=== PATIENT | female | born 1975 | race American Indian/Alaskan Native ===

== ENCOUNTER 2018-04-17 12:23 | Emergency (ER) | payer OTHER ==
[2018-04-17] MEDS ORDERED: NARCAN 2 MG/2 ML ONE (12:34)
[2018-04-17] MEDS ORDERED: ZOFRAN ONE (12:42)
[2018-04-17] MEDS ORDERED: NARCAN 2 MG/2 ML IV ONE (12:43)
[2018-04-17] MEDS ORDERED: ZOFRAN IV ONE (12:43)
[2018-04-17] MEDS ORDERED: KEPPRA 1,000 MG/NS 0.75% 100ML 1,000 MG/100 ML BAG IV ONE (13:01)
--- NOTE | 2018-04-17 13:04 | Cat Scan Report ---
CT HEAD WITHOUT CONTRAST: HISTORY: Altered mental status. TECHNIQUE: Sequential CT images without contrast. FINDINGS: There is a large acute hemorrhage with epicenter overlying the left basal ganglia measuring 5.7 x 3.7 cm in axial plane. There is extension into the ventricular system with thrombus in all ventricles. Mild hydrocephalus is present. There is moderate mass effect on the left lateral ventricle with right to left midline shift measuring 7 mm at the level of the frontal horns. There is mild sulcal effacement throughout the cerebral hemispheres secondary to edema. No extra-axial fluid collection is appreciated. There is moderate mucosal thickening throughout the right maxillary sinus. The remaining visualized sinuses and mastoid air cells are clear. IMPRESSION: Large acute hemorrhage arising from the left basal ganglia with intraventricular extension and mild hydrocephalus. See above. These findings were discussed with Dr. Pierre in the emergency department at 1258 hrs.
[2018-04-17] MEDS ORDERED: ZEMURON IV ONE (13:09)
[2018-04-17] MEDS ORDERED: AMIDATE IV ONE (13:09)
[2018-04-17] MEDS ORDERED: XYLOCAINE CARDIAC IV ONE ×2 (13:09→14:33)
[2018-04-17] MEDS ORDERED: VASELINE LIP THERAPY TP PRN (13:16)
[2018-04-17] MEDS ORDERED: ARTIFICIAL TEARS OPHTH OINT OU PRN (13:16)
--- NOTE | 2018-04-17 13:33 | Emergency Department Report ---
ED Altered Mental Status HPI - General Chief Complaint: Altered Mental Status Stated Complaint: AMS/ N/V Time Seen by Provider: 04/17/18 12:27 Source: family, EMS Mode of arrival: Stretcher Limitations: Altered Mental Status - History of Present Illness Initial Comments: 43-year-old female with a past medical history of diabetes, CAD with stenting, hypertension, elevated cholesterol, and end-stage renal disease on dialysis presents to the hospital with alteration in mental status. Daughter found patient altered in the bed this a.m. and called EMS. Patient was compliant with her dialysis yesterday and was normal and did not have any complaints yesterday or prior to bedtime. Patient is agitated, lethargic, would not follow commands or speak. She appears to be nauseated and had some vomiting at the bedside. Daughter provide a history of present illness. Patient's meds reviewed at the bedside and she is on Plavix and aspirin 325 mg. She also was prescribed Augmentin recently for sinus infection. EMS reports an Accu-Chek in the 100s - Related Data Home Medications Medication Instructions Recorded Confirmed Last Taken Lisinopril 40 mg PO DAILY 06/04/13 05/30/15 05/29/15 Omeprazole Magnesium [PriLOSEC Otc] 20 mg PO PRN PRN 06/04/13 05/30/15 05/29/15 Previous Rx's Medication Instructions Recorded Last Taken Type Aspirin [Aspirin TAB] 325 mg PO QDAY #30 tablet 04/28/13 06/04/13 Rx Clopidogrel [Plavix] 75 mg PO QDAY #30 tablet 04/28/13 06/04/13 Rx Metoprolol [Lopressor TAB] 100 mg PO BID #60 tablet 04/28/13 05/29/15 Rx Rosuvastatin (Nf) [Crestor] 40 mg PO QHS #30 tablet 04/28/13 05/29/15 Rx amLODIPine [Norvasc] 10 mg PO DAILY #30 tablet 04/28/13 05/29/15 Rx cloNIDine [Catapres] 0.1 mg PO Q12HR #60 tablet 04/28/13 05/29/15 Rx HYDROcodone/APAP 7.5-325 [[place] 1 each PO Q8HR PRN #12 tablet 10/03/14 05/29/15 Rx 7.5-325 mg TAB] Amoxicillin/K Clav Tab [Augmentin 1 tab PO Q12HR #4 tab 06/02/15 Unknown Rx 875 mg] Insulin NPH, Human [NovoLIN N] 35 unit SUB-Q BIDDIAB 90 Days 06/02/15 Unknown Rx units Insulin Regular, Human [HumuLIN R] 20 units IV BIDBRS 90 Days units 06/02/15 Unknown Rx Allergies Allergy/AdvReac Type Severity Reaction Status Date / Time No Known Allergies Allergy Verified 10/03/14 10:28 ED Review of Systems ROS: Stated complaint: AMS/ N/V Other details as noted in HPI Comment: All other systems reviewed and negative ED Past Medical Hx - Past Medical History Hx Hypertension: Yes Hx Heart Attack/AMI: Yes ([place] x2) Hx Congestive Heart Failure: No Hx Diabetes: Yes Hx Renal Disease: Yes (end-stage renal disease on dialysis) Hx Asthma: Yes Hx COPD: No - Surgical History Hx Coronary Stent: Yes Additional Surgical History: tubal ligation. endometrial ablation - Social History Smoking Status: Unknown if ever smoked Substance Use Type: None - Medications Home Medications: Home Medications Medication Instructions Recorded Confirmed Last Taken Type Aspirin [Aspirin TAB] 325 mg PO QDAY #30 tablet 04/28/13 05/30/15 06/04/13 Rx Clopidogrel [Plavix] 75 mg PO QDAY #30 tablet 04/28/13 05/30/15 06/04/13 Rx Metoprolol [Lopressor TAB] 100 mg PO BID #60 tablet 04/28/13 05/30/15 05/29/15 Rx Rosuvastatin (Nf) [Crestor] 40 mg PO QHS #30 tablet 04/28/13 05/30/15 05/29/15 Rx amLODIPine [Norvasc] 10 mg PO DAILY #30 tablet 04/28/13 05/30/15 05/29/15 Rx cloNIDine [Catapres] 0.1 mg PO Q12HR #60 tablet 04/28/13 05/30/15 05/29/15 Rx Lisinopril 40 mg PO DAILY 06/04/13 05/30/15 05/29/15 History Omeprazole Magnesium [PriLOSEC Otc] 20 mg PO PRN PRN 06/04/13 05/30/15 05/29/15 History HYDROcodone/APAP 7.5-325 [[place] 1 each PO Q8HR PRN #12 tablet 10/03/14 05/30/15 05/29/15 Rx 7.5-325 mg TAB] Amoxicillin/K Clav Tab [Augmentin 1 tab PO Q12HR #4 tab 06/02/15 Unknown Rx 875 mg] Insulin NPH, Human [NovoLIN N] 35 unit SUB-Q BIDDIAB 90 Days 06/02/15 Unknown Rx units Insulin Regular, Human [HumuLIN R] 20 units IV BIDBRS 90 Days units 06/02/15 Unknown Rx ED Physical Exam - General Limitations: Altered Mental Status - Other Other exam information: General: A Head exam: Atraumatic, normocephalic Eyes exam: Normal appearance, pupils equal reactive to light ENT: Moist mucous membrane, normal oropharynx Neck exam: Normal inspection, full range of motion, no meningismus nontender Respiratory exam: Clear to auscultation bilateral, no wheezes, rales, crackles Cardiovascular: Normal rate and rhythm, left arm dialysis access Abdomen: Soft, nontender, with normal bowel sounds, no rebound, or guarding. Horizontal suprapubic surgical scar Extremity: No deformity, moves both extremities equally, sensation grossly intact Back: Normal Inspection Neurologic: Lethargic, agitated, nonverbal, does not follow commands, spontaneously moves all extremities, withdraws to discomfort, sensation grossly intact Psychiatric: normal affect, normal mood Skin: Warm, dry, intact ED Course Vital Signs 04/17/18 04/17/18 04/17/18 12:43 13:01 13:16 Pulse Rate 78 92 H Respiratory 14 11 L Rate Blood Pressure 255/124 261/146 O2 Sat by Pulse 99 100 Oximetry 04/17/18 04/17/18 04/17/18 13:30 13:46 14:00 Pulse Rate 80 75 80 Respiratory 10 L 12 11 L Rate Blood Pressure 261/146 191/99 178/97 O2 Sat by Pulse 100 100 100 Oximetry 04/17/18 14:15 Pulse Rate 79 Respiratory 18 Rate Blood Pressure 140/80 O2 Sat by Pulse 100 Oximetry - Consultations Consultation #1: 04/17/18 13:30 [facility] paged. 04/17/18 13:42 Case discussed on conference call with transfer service at [facility], Dr. Melendez neurosurgery and Dr. Clement ICU attending. Patient has been accepted for transfer to the NICU. Mannitol bolus recommended - Intubation Time Out Performed: Yes Sedative: Etomidate Mg Given: 20 Paralytic: Rocuronium (100) Mg Given: 100 Laryngoscope: Mary Size: 4 ET Tube Size: 7.5 Other Airway Intervention: pretreated with lidocaine for neurointubation Tube Secured Depth (cm): 22 Tube Secured Location: lips Tube Placement Confirmation: visualized tube passing t, equal breath sounds bilat, no breath sounds over epi, confirmation by capnometr Patient Tolerated Procedure: no complications Intubation Complications: none - Lab Data Result diagrams: 04/17/18 13:20 04/17/18 13:20 Lab Results 04/17/18 04/17/18 04/17/18 Range/Units 13:20 13:20 13:20 WBC 13.5 H (4.5-11.0) K/mm3 RBC 3.47 L (3.65-5.03) M/mm3 Hgb 11.4 (10.1-14.3) gm/dl Hct 34.3 (30.3-42.9) % MCV 99 H (79-97) fl MCH 33 H (28-32) pg MCHC 33 (30-34) % RDW 16.0 H (13.2-15.2) % Plt Count 469 H (140-440) K/mm3 Lymph % (Auto) 25.0 (13.4-35.0) % [place] % (Auto) 6.9 (0.0-7.3) % Eos % (Auto) 1.7 (0.0-4.3) % Baso % (Auto) 1.0 (0.0-1.8) % Lymph # 3.4 (1.2-5.4) K/mm3 [place] # 0.9 H (0.0-0.8) K/mm3 Eos # 0.2 (0.0-0.4) K/mm3 Baso # 0.1 (0.0-0.1) K/mm3 Seg Neutrophils % 65.4 (40.0-70.0) % Seg Neutrophils # 8.8 H (1.8-7.7) K/mm3 PT 12.8 (12.2-14.9) Sec. INR 0.91 (0.87-1.13) APTT 29.7 (24.2-36.6) Sec. Sodium 137 (137-145) mmol/L Potassium 5.1 H (3.6-5.0) mmol/L Chloride 96.4 L (98-107) mmol/L Carbon Dioxide 20 L (22-30) mmol/L Anion Gap 26 mmol/L BUN 39 H (7-17) mg/dL Creatinine 10.1 H (0.7-1.2) mg/dL Estimated GFR 5 ml/min BUN/Creatinine Ratio 4 % Glucose 259 H (65-100) mg/dL Lactic Acid (0.7-2.0) mmol/L Calcium 9.8 (8.4-10.2) mg/dL Total Bilirubin 0.30 (0.1-1.2) mg/dL ALT 13 (7-56) units/L Alkaline Phosphatase 80 (35-129) units/L Ammonia (25-60) umol/L Total Creatine Kinase 81 (30-135) units/L Troponin T 0.065 H (0.00-0.029) ng/mL Total Protein 7.8 (6.3-8.2) g/dL Albumin 4.3 (3.9-5) g/dL Albumin/Globulin Ratio 1.2 % TSH (0.270-4.200) mlU/mL HCG, Qual (Negative) Salicylates (2.8-20.0) mg/dL Acetaminophen (10.0-30.0) ug/mL Plasma/Serum Alcohol (0-0.07) % Blood Type 04/17/18 04/17/18 04/17/18 Range/Units 13:20 13:20 13:20 WBC (4.5-11.0) K/mm3 RBC (3.65-5.03) M/mm3 Hgb (10.1-14.3) gm/dl Hct (30.3-42.9) % MCV (79-97) fl MCH (28-32) pg MCHC (30-34) % RDW (13.2-15.2) % Plt Count (140-440) K/mm3 Lymph % (Auto) (13.4-35.0) % [place] % (Auto) (0.0-7.3) % Eos % (Auto) (0.0-4.3) % Baso % (Auto) (0.0-1.8) % Lymph # (1.2-5.4) K/mm3 [place] # (0.0-0.8) K/mm3 Eos # (0.0-0.4) K/mm3 Baso # (0.0-0.1) K/mm3 Seg Neutrophils % (40.0-70.0) % Seg Neutrophils # (1.8-7.7) K/mm3 PT (12.2-14.9) Sec. INR (0.87-1.13) APTT (24.2-36.6) Sec. Sodium (137-145) mmol/L Potassium (3.6-5.0) mmol/L Chloride (98-107) mmol/L Carbon Dioxide (22-30) mmol/L Anion Gap mmol/L BUN (7-17) mg/dL Creatinine (0.7-1.2) mg/dL Estimated GFR ml/min BUN/Creatinine Ratio % Glucose (65-100) mg/dL Lactic Acid 1.30 (0.7-2.0) mmol/L Calcium (8.4-10.2) mg/dL Total Bilirubin (0.1-1.2) mg/dL ALT (7-56) units/L Alkaline Phosphatase (35-129) units/L Ammonia 32.0 (25-60) umol/L Total Creatine Kinase (30-135) units/L Troponin T (0.00-0.029) ng/mL Total Protein (6.3-8.2) g/dL Albumin (3.9-5) g/dL Albumin/Globulin Ratio % TSH 3.030 (0.270-4.200) mlU/mL HCG, Qual (Negative) Salicylates (2.8-20.0) mg/dL Acetaminophen (10.0-30.0) ug/mL Plasma/Serum Alcohol (0-0.07) % Blood Type 04/17/18 04/17/18 04/17/18 Range/Units 13:20 13:20 13:20 WBC (4.5-11.0) K/mm3 RBC (3.65-5.03) M/mm3 Hgb (10.1-14.3) gm/dl Hct (30.3-42.9) % MCV (79-97) fl MCH (28-32) pg MCHC (30-34) % RDW (13.2-15.2) % Plt Count (140-440) K/mm3 Lymph % (Auto) (13.4-35.0) % [place] % (Auto) (0.0-7.3) % Eos % (Auto) (0.0-4.3) % Baso % (Auto) (0.0-1.8) % Lymph # (1.2-5.4) K/mm3 [place] # (0.0-0.8) K/mm3 Eos # (0.0-0.4) K/mm3 Baso # (0.0-0.1) K/mm3 Seg Neutrophils % (40.0-70.0) % Seg Neutrophils # (1.8-7.7) K/mm3 PT (12.2-14.9) Sec. INR (0.87-1.13) APTT (24.2-36.6) Sec. Sodium (137-145) mmol/L Potassium (3.6-5.0) mmol/L Chloride (98-107) mmol/L Carbon Dioxide (22-30) mmol/L Anion Gap mmol/L BUN (7-17) mg/dL Creatinine (0.7-1.2) mg/dL Estimated GFR ml/min BUN/Creatinine Ratio % Glucose (65-100) mg/dL Lactic Acid (0.7-2.0) mmol/L Calcium (8.4-10.2) mg/dL Total Bilirubin (0.1-1.2) mg/dL ALT (7-56) units/L Alkaline Phosphatase (35-129) units/L Ammonia (25-60) umol/L Total Creatine Kinase (30-135) units/L Troponin T (0.00-0.029) ng/mL Total Protein (6.3-8.2) g/dL Albumin (3.9-5) g/dL Albumin/Globulin Ratio % TSH (0.270-4.200) mlU/mL HCG, Qual (Negative) Salicylates < 0.3 L (2.8-20.0) mg/dL Acetaminophen < 5.0 L (10.0-30.0) ug/mL Plasma/Serum Alcohol < 0.01 (0-0.07) % Blood Type 04/17/18 04/17/18 Range/Units 13:20 13:20 WBC (4.5-11.0) K/mm3 RBC (3.65-5.03) M/mm3 Hgb (10.1-14.3) gm/dl Hct (30.3-42.9) % MCV (79-97) fl MCH (28-32) pg MCHC (30-34) % RDW (13.2-15.2) % Plt Count (140-440) K/mm3 Lymph % (Auto) (13.4-35.0) % [place] % (Auto) (0.0-7.3) % Eos % (Auto) (0.0-4.3) % Baso % (Auto) (0.0-1.8) % Lymph # (1.2-5.4) K/mm3 [place] # (0.0-0.8) K/mm3 Eos # (0.0-0.4) K/mm3 Baso # (0.0-0.1) K/mm3 Seg Neutrophils % (40.0-70.0) % Seg Neutrophils # (1.8-7.7) K/mm3 PT (12.2-14.9) Sec. INR (0.87-1.13) APTT (24.2-36.6) Sec. Sodium (137-145) mmol/L Potassium (3.6-5.0) mmol/L Chloride (98-107) mmol/L Carbon Dioxide (22-30) mmol/L Anion Gap mmol/L BUN (7-17) mg/dL Creatinine (0.7-1.2) mg/dL Estimated GFR ml/min BUN/Creatinine Ratio % Glucose (65-100) mg/dL Lactic Acid (0.7-2.0) mmol/L Calcium (8.4-10.2) mg/dL Total Bilirubin (0.1-1.2) mg/dL ALT (7-56) units/L Alkaline Phosphatase (35-129) units/L Ammonia (25-60) umol/L Total Creatine Kinase (30-135) units/L Troponin T (0.00-0.029) ng/mL Total Protein (6.3-8.2) g/dL Albumin (3.9-5) g/dL Albumin/Globulin Ratio % TSH (0.270-4.200) mlU/mL HCG, Qual Negative (Negative) Salicylates (2.8-20.0) mg/dL Acetaminophen (10.0-30.0) ug/mL Plasma/Serum Alcohol (0-0.07) % Blood Type O NEGATIVE - EKG Data -: EKG Interpreted by Me EKG shows normal: sinus rhythm, axis (qrs -2), QRS complexes (qrsd 92), ST-T waves (lat t inv) Rate: normal (77) When compared to previous EKG there are: no significant change (05/30/15) - Radiology Data Radiology results: report reviewed, image reviewed (xr chest portable: Et tube) CT HEAD WITHOUT CONTRAST: HISTORY: Altered mental status. TECHNIQUE: Sequential CT images without contrast. FINDINGS: There is a large acute hemorrhage with epicenter overlying the left basal ganglia measuring 5.7 x 3.7 cm in axial plane. There is extension into the ventricular system with thrombus in all ventricles. Mild hydrocephalus is present. There is moderate mass effect on the left lateral ventricle with right to left midline shift measuring 7 mm at the level of the frontal horns. There is mild sulcal effacement throughout the cerebral hemispheres secondary to edema. No extra-axial fluid collection is appreciated. There is moderate mucosal thickening throughout the right maxillary sinus. The remaining visualized sinuses and mastoid air cells are clear. IMPRESSION: Large acute hemorrhage arising from the left basal ganglia with intraventricular extension and mild hydrocephalus. See above. These findings were discussed with Dr. Pierre in the emergency department at 1258 hrs. - Medical Decision Making In the ED patient patient received neuro intubation with lidocaine, etomidate, and vecuronium Propofol for sedation Cardene drip for further blood pressure reduction plan transfer with goal of systolic below 160 Mannitol as recommended by [facility] physician Immanuel for seizure prophylaxis zofran for n/v prior to intubation pt is on asa/plavix. normal coags and plts Mild elevation troponin is noted however likley secondary to esrd. EKG is unchanged compared to previous from 2016 - Differential Diagnosis ICH, hypertensive emergency, encephalopathy, CVA Critical Care Time: Yes Critical care time in (mins) excluding proc time.: 65 Critical care attestation.: If time is entered above; I have spent that time in minutes in the direct care of this critically ill patient, excluding procedure time. ED Disposition Clinical Impression: Intracerebral hemorrhage, Malignant hypertension, Altered mental status, Hx of coronary artery disease, ESRD (end stage renal disease) on dialysis, Hx of heart artery stent Disposition: DC/TX-70 ANOTHER TYPE HLTHCARE Is pt being admited?: No Condition: Serious Referrals: PRIMARY CARE, [Primary Care Provider] - 3-5 Days Time of Disposition: 14:18 (awaiting ester transport)
[2018-04-17 13:38] LABS: Basophils # (Auto) 0.1 K/mm3 (0.0-0.1); Eosinophils # (Auto) 0.2 K/mm3 (0.0-0.4); Eosinophils % (Auto) 1.7 % (0.0-4.3); Hematocrit 34.3 % (30.3-42.9); Hemoglobin 11.4 gm/dl (10.1-14.3); Lymphocytes # (Auto) 3.4 K/mm3 (1.2-5.4); Mean Corpuscular HGB Conc 33 % (30-34); Mean Corpuscular Volume 99 fl (79-97); Monocytes # (Auto) 0.9 K/mm3 (0.0-0.8); Monocytes % (Auto) 6.9 % (0.0-7.3); Platelet Count 469 K/mm3 (140-440); Red Blood Count 3.47 M/mm3 (3.65-5.03)
[2018-04-17] MEDS ORDERED: OSMITROL 20% IV ONE (13:43)
[2018-04-17 13:52] LABS: INR 0.91 (0.87-1.13); Partial Thromboplastin Time 29.7 Sec. (24.2-36.6)
[2018-04-17 13:55] LABS: Albumin 4.3 g/dL (3.9-5); Calcium 9.8 mg/dL (8.4-10.2)
[2018-04-17] MEDS ORDERED: DIPRIVAN 10 MG/ML 1,000 MG/100 ML BOTTLE IV SCH (14:00)
[2018-04-17] MEDS ORDERED: OSMITROL 20% 500 ML IV ONE (14:00)
[2018-04-17] MEDS ORDERED: CARDENE 50 MG in NACL 0.9% 250ML 230 ML IV SCH (14:00)
[2018-04-17 14:23] VITALS: BP 140/80
[2018-04-17 14:41] LABS: Chol/HDL Ratio 5.3 %
--- NOTE | 2018-04-17 14:48 | XRay Report ---
AP CHEST: HISTORY: Endotracheal tube placement The endotracheal tube terminates 3.4 cm superior to the darryl. The lungs are clear and well-aerated. Heart size is at the upper limits of normal. Normal pulmonary vascularity. No evidence for pneumonia, pleural fluid or pneumothorax. The bony structures are intact. IMPRESSION: Adequate placement of the endotracheal tube. Borderline heart size.
== END 2018-04-17 14:50 | disposition other institution (70) ==
LOC: ED 12:23
DX: I61.9 Nontraumatic intracerebral hemorrhage, unspecified (principal); I13.2 Hypertensive heart and chronic kidney disease with heart failure and with stage 5 chronic kidney disease, or end stage renal disease; E11.22 Type 2 diabetes mellitus with diabetic chronic kidney disease; N18.6 End stage renal disease; Z99.2 Dependence on renal dialysis; J45.909 Unspecified asthma, uncomplicated; E78.00 Pure hypercholesterolemia, unspecified; Z95.1 Presence of aortocoronary bypass graft; Z79.82 Long term (current) use of aspirin; Z79.4 Long term (current) use of insulin; Z98.51 Tubal ligation status
CPT/HCPCS: 31500; 36415; 70450; 71045; 80053; 80061; 82140; 82550; 84443; 84484; 84703; 85025; 85610; 85730; 86850; 86900; 86901; 93005; 93010; 96365; 96368; 96375; 99291; G0480; J1953; J2001; J2310; J2405; J2704; J7050; 80320; 94002; J2150